=== PATIENT | male | born 2000 | race Two or more races ===

== ENCOUNTER 2022-01-27 15:53 | Emergency (ER) | payer MEDICAID ==
[~2022-01-27] VITALS: Ht 175.3 cm; Wt 84.1 kg
[2022-01-27 15:59] VITALS: BP 135/75
[2022-01-27 16:30] LABS: CLARITY,URINE CLEAR (Clear); COLOR,URINE YELLOW (Yellow); GLUCOSE, URINE NEGATIVE (Neg); KETONES,URINE NEGATIVE (Neg); LEUKOCYTE ESTERASE ,URINE NEGATIVE (Neg); NITRITES, URINE NEGATIVE (Neg); OCCULT BLOOD,URINE NEGATIVE (Neg); PH,URINE 7.5 (4.8-8.0); PROTEIN,URINE NEGATIVE (Neg); UA COLLECTION TYPE CLN CATCH MIDSTREAM
[2022-01-27] MEDS ORDERED: CefTRIAXone 1000mg IM Kit (w/lidocaine diluent) IM STA (16:59)
[2022-01-27] MEDS ORDERED: PENICILLIN G BENZATHINE 2,400,000 UNIT/4 ML SYRINGE IM STA (16:59)
[2022-01-27] MEDS ORDERED: azithromycin 250mg tablet PO ONE (17:00)
== END 2022-01-27 18:06 | disposition home or self-care (01) ==
LOC: ER 15:55
DX: Z11.3 Encounter for screening for infections with a predominantly sexual mode of transmission (principal); R30.0 Dysuria; L98.9 Disorder of the skin and subcutaneous tissue, unspecified
CPT/HCPCS: 36415; 81003; 86592; 87491; 87591; 96372; 99284; J0561; J0696